=== PATIENT | male | born 1960 | race American Indian/Alaskan Native ===

== ENCOUNTER 2016-08-17 20:45 | Emergency (ER) | payer MEDICAID ==
[2016-08-17 21:01] VITALS: TEMP 98.4; BMI 38.0
--- NOTE | 2016-08-17 21:02 | ED PDOC ---
Arrival/HPI - General Time Seen by Provider: 08/17/16 20:52 Historian: Patient - History of Present Illness Narrative History of Present Illness (Text): 08/17/16 21:01 Ciaran Martin is a 56 year old male, whose past medical history includes chronic back pain, who presents to the Emergency department status post syncopal episode. Patient states he has "breathing problem" and while walking outside he began feeling very fatigued and hot. Patient states he subsequently had a syncopal episode. Patient was brought in by EMS and given Narcan en route with positive response. Patient notes he regularly takes Perococet and Klonopin for his chronic back problems. Patient denies any hest pain, shortness of breath , nausea, vomiting, diarrhea, urinary symptoms, back pain, neck pain, headache, dizziness, or any other complaints. PMD: Dr. Rivera Time/Duration: Other (tonight) Symptom Onset: Gradual Symptom Course: Unchanged Activities at Onset: Light Context: Walking, Street Past Medical History - Provider Review Nursing Documentation Reviewed: Yes Family/Social History - Physician Review Nursing Documentation Reviewed: Yes Family/Social History: Unknown Family HX Allergies/Home Meds Allergies/Adverse Reactions: Allergies No Known Allergies Allergy (Verified 08/17/16 21:00) Home Medications: Home Meds Medication Instructions Recorded Confirmed Clonazepam [Klonopin] 2 mg PO TID 08/17/16 08/17/16 Oxycodone HCl/Acetaminophen 1 each PO Q6H PRN 08/17/16 08/17/16 [Percocet 10-325 mg Tablet] Review of Systems - Physician Review All systems were reviewed & negative as marked: Yes - Review of Systems Constitutional: Fatigue Eyes: Normal ENT: Normal Respiratory: Normal. absent: SOB, Cough Cardiovascular: Syncope Gastrointestinal: Normal. absent: Abdominal Pain, Nausea, Vomiting Genitourinary Male: Normal Musculoskeletal: Normal. absent: Back Pain, Neck Pain Skin: Normal Neurological: Normal. absent: Headache, Dizziness Endocrine: Normal Hemo/Lymphatic: Normal Psychiatric: Normal Physical Exam Vital Signs Reviewed: Yes Vital Signs Temp Pulse Resp BP Pulse Ox 08/18/16 00:00 73 16 129/74 93 L 08/17/16 22:20 75 14 118/74 93 L 08/17/16 21:00 98.4 F 87 14 115/82 94 L Temperature: Afebrile Blood Pressure: Normal Pulse: Regular Respiratory Rate: Normal Appearance: Positive for: Well-Appearing, Non-Toxic, Comfortable Pain Distress: None Mental Status: Positive for: Alert and Oriented X 3 - Systems Exam Head: Present: Atraumatic, Normocephalic Pupils: Present: PERRL Extroacular Muscles: Present: EOMI Conjunctiva: Present: Normal Mouth: Present: Moist Mucous Membranes Neck: Present: Normal Range of Motion Respiratory/Chest: Present: Clear to Auscultation, Good Air Exchange. No: Respiratory Distress, Accessory Muscle Use Cardiovascular: Present: Regular Rate and Rhythm, Normal S1, S2. No: Murmurs Abdomen: Present: Normal Bowel Sounds. No: Tenderness, Distention, Peritoneal Signs Back: Present: Normal Inspection Upper Extremity: Present: Normal Inspection. No: Cyanosis, Edema Lower Extremity: Present: Normal Inspection. No: Edema Neurological: Present: GCS=15, CN II-XII Intact, Speech Normal Skin: Present: Warm, Dry, Normal Color. No: Rashes Psychiatric: Present: Alert, Oriented x 3, Normal Insight, Normal Concentration Medical Decision Making ED Course and Treatment: 08/17/16 21:02 Impression: 56 year old male brought in s/p syncopal episode tonight. Differential Diagnosis included but are not limited to: adverse medication effect Plan: -- CT Head w/o contrast -- EKG -- Chest X-ray -- Labs, alcohol level -- Urinalysis, urine drug screen -- IV fluids -- Reassess and disposition Progress Notes: Reviewed EKG, NSR at 86 bpm. Non-specific T wave changes. 08/17/16 23:56 reviewed radiology, Chest X-ray shows no acute processes. CT Head shows: Brain: Mild atrophy. No intracranial hemorrhage. No mass. No definite edema. Ventricles: No hydrocephalus. Bones/joints: No acute fracture. Soft tissues: Unremarkable. Vasculature: Mild atherosclerotic disease of intracranial arteries. Sinuses: Scattered moderate thickening of ethmoid sinuses. Mastoid air cells: No mastoid effusion. Orbits: Unremarkable as visualized. IMPRESSION: 1. No definite acute intracranial abnormality. Acute infarction may be CT occult within first 24 hours. If a focal deficit persists, consider followup CT or MRI for further evaluation. 2. Sinus disease. 3. Incidental/non-acute findings are described above 08/18/16 0:35 On reevaluation the patient feels better and is in no acute distress. I have discussed the results and plan with the patient, who expresses understanding. Patient given the opportunity to ask question, all questions were answered and there is agreement with the plan to discharge the patient home. Patient is stable for discharge. Patient was instructed to follow up with physician/clinic in 1-2 days or return if symptoms persist/worsen or new concerning symptoms arise. - Lab Interpretations Lab Results: 08/17/16 21:15 08/17/16 21:15 Lab Results 08/17/16 23:50: Urine Opiates Screen Positive H, Urine Methadone Screen Negative , Ur Barbiturates Screen Negative, Ur Phencyclidine Scrn Negative, Ur Amphetamines Screen Negative, U Benzodiazepines Scrn Positive H, U Oth Cocaine Metabols Negative, U Cannabinoids Screen Negative 08/17/16 23:50: Urine Color Yellow, Urine Appearance Clear, Urine pH 6.0, Ur Specific [place] 1.025, Urine Protein Trace H, Urine Glucose (UA) Negative, Urine Ketones Negative, Urine Blood Negative, Urine Nitrate Negative, Urine Bilirubin Negative, Urine Urobilinogen 0.2, Ur Leukocyte Esterase Negative, Urine RBC 0 - 2, Urine WBC 0 - 2, Ur Epithelial Cells 3 - 4 08/17/16 21:15: Alcohol, Quantitative < 10 08/17/16 21:15: Salicylates < 1 L, Acetaminophen < 10.0 L 08/17/16 21:15: Sodium 140, Potassium 4.3, Chloride 104, Carbon Dioxide 28, Anion Gap 12, BUN 14, Creatinine 1.0, Est GFR ( Amer) > 60, Est GFR (Non- Af Amer) > 60, Random Glucose 98, Calcium 9.2, Total Bilirubin 0.4, AST 25, ALT 25, Alkaline Phosphatase 82, Total Protein 7.5, Albumin 3.8, Globulin 3.7, Albumin/Globulin Ratio 1.0 L 08/17/16 21:15: WBC 8.6, RBC 4.04, Hgb 11.6 L, Hct 35.0 L, MCV 86.6, MCH 28.7, MCHC 33.1, RDW 15.6 H, Plt Count 249, MPV 11.2 H, Gran % 62.8, Lymph % (Auto) 18.7 L, [place] % (Auto) 9.6 H, Eos % (Auto) 8.7 H, Baso % (Auto) 0.2, Gran # 5.40 , Lymph # 1.6, Lawrence # 0.8 H, Eos # 0.8 H, Baso # 0.02 I have reviewed the lab results: Yes - RAD Interpretation Radiology Orders: 08/17/16 21:09 HEAD W/O CONTRAST [CT] Stat 08/17/16 21:10 CHEST PORTABLE [RAD] Stat Associate Professor Of History: ED Physician, Radiologist - EKG Interpretation Interpreted by ED Physician: Yes Type: 12 lead EKG - Medication Orders Current Medication Orders: Discontinued Medications Sodium Chloride (Sodium Chloride 0.9%) 1,000 mls @ 80 mls/hr IV .[id number] Last Admin: 08/17/16 21:45 Dose: 80 mls/hr - Scribe Statement The provider has reviewed the documentation as recorded by the Rachibbenedict Alejandro Provider Attestation: All medical record entries made by the Scribe were at my direction and personally dictated by me. I have reviewed the chart and agree that the record accurately reflects my personal performance of the history, physical exam, medical decision making, and the department course for this patient. I have also personally directed, reviewed, and agree with the discharge instructions and disposition. Disposition/Present on Arrival - Present on Arrival Any Indicators Present on Arrival: No - Disposition Have Diagnosis and Disposition been Completed?: Yes Diagnosis: Medication adverse effect Disposition: HOME/ ROUTINE Disposition Time: 00:35 Condition: GOOD Discharge Instructions (ExitCare): Narcotic Pain Management (ED) Additional Instructions: spinal cord stimulator Referrals: Nestor Rivera MD [Primary Care Provider] - Follow up with primary Harish Guan MD [Staff Provider] - Follow up with primary
[2016-08-17] MEDS ORDERED: Sodium Chloride 0.9% 1,000 ML IV SCH (21:30)
[2016-08-17 21:33] LABS: BASO # 0.02 K/mm3 (0.0-2.0); BASO % 0.2 % (0.0-3.0); EOS # 0.8 (0.0-0.7); EOS % 8.7 % (1.5-5.0); GRAN % 62.8 % (50.0-68.0); HEMOGLOBIN 11.6 gm/dL (14.0-18.0); LYMPH # 1.6 (1.2-3.4); LYMPH % 18.7 % (22.0-35.0); MEAN CELL VOLUME 86.6 fL (80.0-105.0); MEAN CORPUSCULAR HEMOGLOBIN 28.7 pg (25.0-35.0); MEAN CORPUSCULAR HGB CONC 33.1 g/dl (31.0-37.0); MEAN PLATELET VOLUME 11.2 fl (7.0-11.0); MONO # 0.8 (0.1-0.6); MONO % 9.6 % (1.0-6.0); PLATELET COUNT 249 10^3/uL (120.0-450.0); RBC 4.04 10^6/uL (3.5-6.1); RED CELL DISTRIBUTION WIDTH 15.6 % (11.5-14.5); WHITE BLOOD COUNT 8.6 10^3/ul (4.5-11.0)
[2016-08-17 21:50] LABS: ALBUMIN 3.8 g/dL (3.0-4.8); ALT/SGPT 25 U/L (7-56); AST/SGOT 25 U/L (15-59); BLOOD UREA NITROGEN 14 mg/dL (7-21); CALCIUM 9.2 mg/dL (8.4-10.5); GFR AFRICAN-AMERICAN > 60; GFR NON-AFRICAN AMERICAN > 60
[2016-08-17 22:11] LABS: SALICYLATE < 1 mg/dL (2.0-20.0)
[2016-08-17 22:26] LABS: ACETAMINOPHEN < 10.0 ug/ml (10.0-20.0)
[2016-08-17 22:28] VITALS: O2SAT 93
--- NOTE | 2016-08-17 23:18 | CT ---
EXAM: CT Head Without Intravenous Contrast CLINICAL HISTORY: 55 years old, male; Signs and symptoms; Dizziness; Additional info: Syncope TECHNIQUE: Axial computed tomography images of the head/brain without intravenous contrast. This CT exam was performed using one or more of the following dose reduction techniques: automated exposure control, adjustment of the mA and/or kV according to patient size, and/or use of iterative reconstruction technique. COMPARISON: No relevant prior studies available. FINDINGS: Brain: Mild atrophy. No intracranial hemorrhage. No mass. No definite edema. Ventricles: No hydrocephalus. Bones/joints: No acute fracture. Soft tissues: Unremarkable. Vasculature: Mild atherosclerotic disease of intracranial arteries. Sinuses: Scattered moderate thickening of ethmoid sinuses. Mastoid air cells: No mastoid effusion. Orbits: Unremarkable as visualized. IMPRESSION: 1. No definite acute intracranial abnormality. Acute infarction may be CT occult within first 24 hours. If a focal deficit persists, consider followup CT or MRI for further evaluation. 2. Sinus disease. 3. Incidental/non-acute findings are described above.
[2016-08-18 00:13] LABS: URINE BILIRUBIN NEGATIVE (NEGATIVE); URINE BLOOD NEGATIVE (NEGATIVE); URINE GLUCOSE (UA) NEGATIVE (NEGATIVE); URINE LEUKOCYTE ESTERASE NEGATIVE Leu/uL (NEGATIVE); URINE NITRATE NEGATIVE (NEGATIVE); URINE PROTEIN TRACE mg/dL (<30 mg/dL); URINE UROBILINOGEN 0.2 E.U./dL (<1 E.U./dL)
[2016-08-18 00:17] LABS: URINE APPEARANCE CLEAR (CLEAR); URINE COLOR YELLOW (YELLOW)
[2016-08-18 00:23] VITALS: BP 129/74; PULSE 73; RESP 16
[2016-08-18 00:27] LABS: BARBITURATES, UR NEGATIVE (NEGATIVE); BENZODIAZEPINES, UR POSITIVE (NEGATIVE); OPIATES, UR POSITIVE (NEGATIVE); PHENCYCLIDINE, UR NEGATIVE (NEGATIVE)
[2016-08-18 00:31] LABS: URINE RBC 0 - 2 /hpf (0-2); URINE WBC 0 - 2 /hpf (0-6)
--- NOTE | 2016-08-18 08:24 | RAD ---
HISTORY: syncope COMPARISON: TheNo prior. FINDINGS: LUNGS: No active pulmonary disease. PLEURA: No significant pleural effusion identified, no pneumothorax apparent. CARDIOVASCULAR: Normal. OSSEOUS STRUCTURES: No significant abnormalities. VISUALIZED UPPER ABDOMEN: Normal. OTHER FINDINGS: None. IMPRESSION: No active disease.
--- NOTE | 2016-08-18 10:04 | CARD ---
APPROVED REPORT EKG Measurement Heart [id number] <Conclusion> Normal sinus rhythm Nonspecific T wave abnormality
== END 2016-08-18 00:35 | disposition home or self-care (01) ==
LOC: ED 20:45
DX: R55 Syncope and collapse (principal); T40.2X5A Adverse effect of other opioids, initial encounter; T42.4X5A Adverse effect of benzodiazepines, initial encounter; Y93.01 Activity, walking, marching and hiking; Y92.410 Unspecified street and highway as the place of occurrence of the external cause
CPT/HCPCS: 70450; 71010; 80053; 80320; 80324; 80329; 80345; 80346; 80349; 80353; 80358; 80361; 81001; 83992; 85025; 93005; 99284; J7040